=== PATIENT | female | born 1985 | race Caucasian/White ===

== ENCOUNTER 2021-08-11 02:45 | Emergency (ER) | payer MEDICAID ==
[~2021-08-11] VITALS: Ht 162.6 cm; Wt 88.0 kg
[2021-08-11 07:13] VITALS: BP 114/76
[2021-08-11] MEDS ORDERED: ACETAMINOPHEN 325 MG TAB PO ONE (07:15)
[2021-08-11] MEDS ORDERED: PROMETHAZINE HCL 25 MG/ML 1ML IM ONE (07:15)
[2021-08-11] MEDS ORDERED: SODIUM CHLORIDE 0.9% 1,000 ML IV ONE (07:30)
[2021-08-11] MEDS ORDERED: ACET-1158 PO (09:02)
[2021-08-11] MEDS ORDERED: PROM12.57 PO (09:02)
== END 2021-08-11 10:25 | disposition home or self-care (01) ==
LOC: ER 02:45
DX: O21.8 Other vomiting complicating pregnancy (principal); J06.9 Acute upper respiratory infection, unspecified; Z3A.18 18 weeks gestation of pregnancy; Z20.822 Contact with and (suspected) exposure to COVID-19
CPT/HCPCS: 36415; 76805; 87426; 87804; 96360; 96361; 96372; 99284; J2550; J7030

== ENCOUNTER 2021-08-18 20:28 | Emergency (ER) | payer MEDICAID ==
[~2021-08-18] VITALS: Ht 152.4 cm; Wt 88.0 kg
[~2021-08-18 20:28] MED LIST: ACET-1158 PO; PROM12.57 PO
[2021-08-18] MEDS ORDERED: ALUM & MAG HYDROX-SIMETH LIQ(MAALOX) 30 ML PO ONE (20:45)
[2021-08-18] MEDS ORDERED: D5W/SOD CHLO 0.9% 1,000 ML IV ONE (20:45)
[2021-08-18] MEDS ORDERED: FAMOTIDINE (10MG/ML) 2ML VL IV ONE (20:45)
[2021-08-18] MEDS ORDERED: ONDANSETRON HCL 4 MG/2 ML VIAL IV ONE (20:45)
[2021-08-18 21:10] LABS: BUN/Creatinine Ratio 10.9; Basophils # (auto) 0.2 10 ^3/uL (0-0.2); Basophils % (auto) 1.4 % (0.0-2.0); Calcium 8.9 mg/dL (8.5-10.1); Eosinophils # (auto) 0.1 10 ^3/uL (0-0.8); Eosinophils % (auto) 0.7 % (0.0-7.0); Hematocrit 39.2 % (36.0-46.0); Hemoglobin 13.1 g/dL (12.2-16.2); Lymphocytes # (auto) 2.6 10 ^3/uL (0.4-5.4); Lymphocytes % (auto) 17.3 % (10.0-50.0); Mean Corpuscular Hemoglobin 30.5 pg (28.0-32.0); Mean Corpuscular Hgb Conc. 33.4 g/dL (32.0-36.0); Mean Corpuscular Volume 91.4 fL (80.0-100.0); Monocytes # (auto) 0.9 10 ^3/uL (0-1.3); Monocytes % (auto) 6.3 % (0.0-12.0); Neutrophils # (auto) 11.2 10 ^3/uL (1.6-8.6); Neutrophils % (auto) 74.3 % (37.0-80.0); Potassium 3.6 mmol/L (3.5-5.1); Red Blood Cells 4.29 10^6/uL (4.0-5.20); White Blood Cell 15.1 10^3/uL (4.4-10.8)
[2021-08-18 21:37] LABS: Albumin 3.2 g/dL (3.4-5.0); Bilirubin, Total 0.4 mg/dL (0.2-1.0); Phosphorus 3.3 mg/dL (2.5-4.90); Total Protein 7.9 g/dL (6.4-8.2)
[2021-08-19 01:12] LABS: Urine Bacteria FEW /hpf (None Seen); Urine Blood Negative /uL (Negative); Urine Mucus FEW (None Seen); Urine Specific Gravity 1.033 (1.001-1.035); Urine WBC 4 /hpf (0 - 5)
[2021-08-19] MEDS ORDERED: CEFP200T15 PO (01:59)
[2021-08-19] MEDS ORDERED: ONDA-144 PO (01:59)
[2021-08-19 02:55] VITALS: BP 121/86
== END 2021-08-19 02:55 | disposition home or self-care (01) ==
LOC: ER 20:28
DX: O98.512 Other viral diseases complicating pregnancy, second trimester (principal); O21.8 Other vomiting complicating pregnancy; U07.1 COVID-19; K52.89 Other specified noninfective gastroenteritis and colitis; Z3A.20 20 weeks gestation of pregnancy
CPT/HCPCS: 36415; 76815; 80053; 81001; 82010; 83690; 83735; 84100; 85025; 96361; 96374; 96375; 99284; J2405; J3490; J7030

== ENCOUNTER 2021-11-17 21:43 | Observation (INO) | payer MEDICAID ==
[~2021-11-17] VITALS: Ht 152.4 cm; Wt 88.9 kg
[~2021-11-17 21:43] MED LIST changes: +CEFP200T15 PO; +ONDA-144 PO
[2021-11-17] MEDS ORDERED: PREN27TA7 OR (22:29)
[2021-11-17] MEDS: TERBUTALINE SULFATE 1 MG/ML 1ML VIAL SC PRN ×2 (22:51→23:14)
[2021-11-17 23:49] LABS: Amphetamine Screen, Urine NEGATIVE (NEGATIVE); Barbiturate Scree,Urine NEGATIVE (NEGATIVE); Benzodiazephine Screen, Urine NEGATIVE (NEGATIVE); Cocaine Screen, Urine NEGATIVE (NEGATIVE); Phencyclidine Screen, Urine NEGATIVE (NEGATIVE)
[2021-11-17 23:56] LABS: Cannabinoid Screen, Urine POSITIVE (NEGATIVE); Opiate Scree,Urine NEGATIVE (NEGATIVE)
== END 2021-11-17 23:48 | disposition home or self-care (01) ==
LOC: LDRP 21:43
PROVIDERS: ADMIT Obstetrics & Gynecology; ATTEND Obstetrics & Gynecology
DX: O26.893 Other specified pregnancy related conditions, third trimester (principal); R10.9 Unspecified abdominal pain; O24.419 Gestational diabetes mellitus in pregnancy, unspecified control; O99.323 Drug use complicating pregnancy, third trimester; F12.90 Cannabis use, unspecified, uncomplicated; Z3A.32 32 weeks gestation of pregnancy
CPT/HCPCS: 59025; 80307; 81002; 82962; 94760; 96372; G0378; J3105